=== PATIENT | female | born 1975 | race Caucasian/White ===

== ENCOUNTER 2017-08-30 16:01 | Emergency (ER) | payer MEDICAID ==
[~2017-08-30] VITALS: Ht 149.9 cm; Wt 99.8 kg
[~2017-08-30 16:01] MED LIST: ATIVAN1 MG PO; IBUPROFEN800 MG PO; NAPROXEN375 MG PO; NORCO 10-325 T1 EACH PO
[2017-08-30] MEDS ORDERED: HUMIRA CRO40 MG/0.8 SUB-Q (17:44)
[2017-08-30] MEDS ORDERED: FLAGYL500 MG PO (19:27)
== END 2017-08-30 19:44 | disposition home or self-care (01) ==
LOC: ED 16:01
DX: N76.0 Acute vaginitis (principal); Z87.891 Personal history of nicotine dependence; Z90.710 Acquired absence of both cervix and uterus; Z88.8 Allergy status to other drugs, medicaments and biological substances; Z79.899 Other long term (current) drug therapy
CPT/HCPCS: 81001; 99283